=== PATIENT | male | born 2000 | race Caucasian/White ===

== ENCOUNTER 2023-11-07 21:38 | Emergency (ER) | payer BC, OTHER, SELFPAY ==
[2023-11-07 22:07] VITALS: BP 117/67; PULSE 71; RESP 20; TEMP 36.6; O2SAT 96; BMI 21.3
[2023-11-07 22:38] LABS: Appearance Urine Clear; Color Urine Yellow; Glucose Urine UA Negative (Negative); Leukocyte Esterase Urine Negative (Negative); Nitrite Urine Negative (Negative); PH 6.5 (5.0-9.0); Specific Gravity - Urine >= 1.030 (1.005-1.025); Urine Blood Negative (Negative); Urine Ketones Trace mg/dL (Negative); Urine Protein Trace mg/dL (Neg-Trace)
--- NOTE | 2023-11-08 05:55 | ED.MALEGU ---
HPI - Male Genitourinary General Chief complaint: Urogenital-Male Stated complaint: painful urination Time Seen by Provider: 11/08/23 05:55 History of Present Illness ED Provider: Yasmeen DE LA ROSA Narrative: Patient is a 23-year-old male who developed discomfort in his suprapubic area yesterday evening at around 19:00. He notices the discomfort most when he urinates or when he tries to have a bowel movement. He and his girlfriend recently flew back to [place] from [place]. They flew from [place] to [place] and arrived in [place] yesterday evening at around 23:00. They spent Thursday night in the [place] area and then drove to this area during the day yesterday on Thursday the visit his girlfriend's parents who live in [place]. The patient says that the pain is primarily in the middle of his lower abdomen. He does not have any pain in his penis itself when he urinates, he has discomfort in the suprapubic area. He is not certain when his last bowel movement was. He thinks maybe it was Thursday morning. No fever, sweats, chills. Related Data Allergies Allergy/AdvReac Type Severity Reaction Status Date / Time No Known Allergies Allergy Verified 11/07/23 22:11 Review of Systems Review of Systems: Yes all other systems are reviewed and are negative COUNT INCLUDES THE [facility] Social History Social History Unable to assess alcohol history related to: Unknown Smoked in Last 30 Days: No Use of substances other than those prescribed or required for medical reasons: No Advance Directives: No Advance Directives Information Provided: No Do you have a plan to hurt others: No Plan Physical Exam Vital Signs: Vital Signs: Last Vital Signs Temp 98.8 F 11/08/23 07:45 Pulse 59 11/08/23 07:45 Resp 16 11/08/23 07:45 BP 118/76 11/08/23 07:45 Pulse Ox 98 11/08/23 07:45 O2 Del Method Room Air 11/08/23 07:45 BMI result Body Mass Index 21.3 Const: Other: The patient is a slim 23-year-old male who was awake and alert and does not appear obviously ill. HEENT: Other: Face is Symmetrical. Mucous membranes moist. Eyes: Other: Pupils are round and equal, conjunctivae are clear Neck: Other: Moving his neck easily Resp: Effort & Inspection: normal respiratory effort Auscultation: clear to auscultation bilaterally Cardio: Rate: regular rate Rhythm: regular rhythm Heart sounds: S1 normal heart sound present and S2 normal heart sound present GI: Other: The patient's abdomen is flat and soft. He has tender in the suprapubic area. There is some mild right lower quadrant tenderness but this is quite subtle and the right lower quadrant can be palpated very deeply. : Other: Normal external genitalia. Circumcised male. No discharge. No penile lesions. Normal testes. Cremasteric reflexes are normal bilaterally. Skin: Other: Skin is dry and unremarkable Neuro: Other: The patient is awake, alert, pleasant, cooperative. Grossly neurologically intact. Extrem: Other: No peripheral edema Medications Administered Discontinued Medications Generic Name Dose Route Start Last Admin Trade Name Freq PRN Reason Stop Dose Admin Sodium Chloride 1,000 mls @ 999 mls/hr 11/08/23 07:00 11/08/23 06:58 Ns IV 11/08/23 08:00 999 mls/hr .Q1H1M [facility] Administration Medical Decision Making Medical Decision Making [facility] Narrative: The patient is a 23-year-old male who presents with discomfort that is worse with urination and with defecation. He has a negative urinalysis and unremarkable labs. He has been traveling recently. I suspect he may have some degree of constipation. Given his benign labs I think appendicitis would be very unlikely as this would be unusual presentation of appendicitis to begin with. I doubt CT imaging is necessary. He will be advised to use MiraLax for a few days. He should return if he has worse. Lab Data 11/08/23 06:51 11/08/23 06:51 Labs: Lab Results 11/07/23 11/08/23 Range/Units 22:28 06:51 WBC 5.5 (4.8-10.8) X10*3/uL RBC 4.86 (4.60-5.80) X10*6/uL Hgb 15.1 (14.0-18.0) g/dl Hct 42.7 (42.0-52.0) % MCV 87.9 (80.0-98.0) fL MCH 31.1 (27.0-33.0) pg MCHC 35.4 (31.0-36.0) g/dl RDW 11.6 (11.0-16.0) % Plt Count 167 (160-400) X10*3/uL MPV 10.4 (9.4-12.4) fL Immature Gran % (Auto) 0.4 (0.0-0.4) % Neut % (Auto) 55.8 (45-73) % Lymph % (Auto) 28.4 (20-40) % [place] % (Auto) 9.9 (2-11) % Eos % (Auto) 4.8 H (0-4) % Baso % (Auto) 0.7 (0-2) % Lymph # (Auto) 1.6 (1.2-4.9) X10*3/uL [place] # (Auto) 0.5 (0.1-1.2) X10*3/uL Eos # (Auto) 0.3 (0.0-0.4) X10*3/uL Baso # (Auto) 0.0 (0.0-0.2) X10*3/uL Abs Immat Gran (auto) 0.02 (0.00-0.03) X10*3/uL Absolute Neuts (auto) 3.0 (2.0-8.3) x10*3/uL Absolute Nucleated RBC 0.000 (0.0-0.012) X10*3/uL Nucleated RBC % (auto) 0.0 (0.0-0.2) /100WBC Sodium 141 (135-145) mmol/L Potassium 4.0 (3.3-5.1) mmol/L Chloride 107 (96-108) mmol/L Carbon Dioxide 28 (22-29) mmol/L Anion Gap 10 L (12-20) BUN 21 H (9-16) mg/dL Creatinine 1.08 (0.5-1.4) mg/dL Estim Creat Clear Calc 94.5 Estimated GFR > 60 Random Glucose 77 (60-115) mg/dL Calcium 9.5 (8.4-10.2) mg/dL Total Bilirubin 0.5 (0.0-1.0) mg/dL Direct Bilirubin 0.2 (0.0-0.5) mg/dL AST 15 (5-37) U/L ALT 19 (0-40) U/L Alkaline Phosphatase 89 (39-117) U/L C-Reactive Protein 0.22 (< or = 0.50) mg/dL Total Protein 7.3 (6.5-8.0) g/dL Albumin 4.5 (3.5-5.0) g/dL Lipase 27 (8-78) U/L Urine Color Yellow Urine Appearance Clear Urine pH 6.5 (5.0-9.0) Ur Specific [place] >= 1.030 H (1.005-1.025) Urine Protein Trace (Neg-Trace) mg/dL Urine Glucose (UA) Negative (Negative) mg/dL Urine Ketones Trace (Negative) mg/dL Urine Blood Negative (Negative) Urine Nitrite Negative (Negative) Ur Leukocyte Esterase Negative (Negative) Chlam trachomat DNA PCR NOT DETECTED (Not Detect.) N.gonorrhoeae DNA (PCR) NOT DETECTED (Not Detect.) Discharge Plan Discharge Clinical Impression: Suprapubic discomfort Patient Disposition: Home, Self-Care Additional Instructions: Your urine testing today does not show any signs of infection. Your blood testing is also quite unremarkable aside from possibly showing some degree of mild dehydration. Overall I think it is unlikely that your symptoms today represent an acute surgical process such as appendicitis. It is possible your symptoms could be related to some constipation associated with your travel. I would recommend getting some MiraLax (polyethylene glycol) or a similar store brand product which may be less expensive and taking a capful in a large glass of water daily for a couple of days. I would also try to drink a lot of fluid today. My hope is that your symptoms will resolve and you will feel significantly better after a day or 2. However if at any point you feel your abdominal discomfort is getting significantly worse, especially if you lose your appetite, then it would be reasonable to return to the emergency room for further evaluation. If you are uncertain of what to do please contact your regular doctor for advice. Interventions: ED Discharge Assessment Last Done: 11/08/23 07:45 Discharge Date/Time: 11/08/23 07:45 Print Language: [place]
[2023-11-08 06:20] VITALS: BP 118/76; PULSE 59; RESP 16; TEMP 37.1; O2SAT 98
[2023-11-08 06:57] LABS: MANUAL DIFF FLAG NO
[2023-11-08] MEDS: 0.9 % Sodium Chloride 1,000 ML 999 ML IV (06:58)
[2023-11-08 07:00] LABS: Basophils Percent Auto 0.7 % (0-2); Eosinophils Absolute Auto 0.3 X10*3/uL (0.0-0.4); Eosinophils Percent Auto 4.8 % (0-4); Hematocrit 42.7 % (42.0-52.0); Hemoglobin 15.1 g/dl (14.0-18.0); Imm Gran Abs Auto 0.02 X10*3/uL (0.00-0.03); Imm Gran Pct Auto 0.4 % (0.0-0.4); Lymphocytes Absolute Auto 1.6 X10*3/uL (1.2-4.9); Lymphocytes Percent Auto 28.4 % (20-40); Mean Corpuscular HGB Conc 35.4 g/dl (31.0-36.0); Mean Corpuscular Hemoglobin 31.1 pg (27.0-33.0); Mean Corpuscular Volume 87.9 fL (80.0-98.0); Mean Platelet Volume 10.4 fL (9.4-12.4); Monocytes Absolute Auto 0.5 X10*3/uL (0.1-1.2); Monocytes Percent Auto 9.9 % (2-11); Neutrophils Percent Auto 55.8 % (45-73); Platelet Count 167 X10*3/uL (160-400); Red Blood Count 4.86 X10*6/uL (4.60-5.80); Red Cell Distribution Width 11.6 % (11.0-16.0); White Blood Count 5.5 X10*3/uL (4.8-10.8)
[2023-11-08 07:11] LABS: Alanine Aminotransferase 19 U/L (0-40); Albumin Level 4.5 g/dL (3.5-5.0); Alkaline Phosphatase 89 U/L (39-117); Anion Gap 10 (12-20); Aspartate Amino Transferase 15 U/L (5-37); Bilirubin Direct 0.2 mg/dL (0.0-0.5); Bilirubin Total 0.5 mg/dL (0.0-1.0); Blood Urea Nitrogen 21 mg/dL (9-16); C Reactive Protein 0.22 mg/dL (< or = 0.50); Calcium 9.5 mg/dL (8.4-10.2); Carbon Dioxide 28 mmol/L (22-29); Chloride 107 mmol/L (96-108); Creatinine Clr Calc Pharmacy 94.5; Estimated Glomerular Filt Rate > 60; Glucose Random 77 mg/dL (60-115); Lipase 27 U/L (8-78); Sodium 141 mmol/L (135-145); Total Protein 7.3 g/dL (6.5-8.0)
--- NOTE | 2023-11-08 07:20 | PC.NURSE ---
patient states that having the IV in his arm is giving him anxiety. requesting PO hydration.
[2023-11-08 07:45] VITALS: BP 118/76; PULSE 59; RESP 16; TEMP 37.1; O2SAT 98
[2023-11-08 16:28] LABS: CT PCR NOT DETECTED (Not Detect.); NG PCR NOT DETECTED (Not Detect.)
== END 2023-11-08 07:45 | disposition home or self-care (01) ==
PROVIDERS: Emergency Provider Emergency Medicine
DX: R10.30 Lower abdominal pain, unspecified (principal); R30.9 Painful micturition, unspecified
CPT/HCPCS: 36415; 80048; 80076; 81003; 83690; 85025; 86140; 87491; 87591; 99283; 99284